=== PATIENT | female | born 1945 | race Caucasian/White ===

== ENCOUNTER → 2017-08-19 | Outpatient (CLI) | payer MEDICARE ==
[~2017-08-19] MED LIST: ASPIR 8181 MG PO; CALCIUM600 MG PO; CICLOPIROX15 GM TOP; LANSOPRAZOLE15 MG PO; POLYETHYLENE GL17 GM PO; SYNTHROID25 MCG PO
--- NOTE | 2017-08-19 11:58 | Diagnostic Imaging Report ---
Exam: Head CT without contrast History: Trauma Comparison studies: None Technique: Axial images were obtained from the skull base to the vertex. Coronal and sagittal images reconstructed from the axial data. Intravenous contrast: None Findings: Scalp: No abnormalities. Bones: No fractures, blastic or lytic lesions. Brain sulci: Appropriate for age. Ventricles: Normal in size and configuration. No hydrocephalus. Extra-axial spaces: No masses, no fluid collection. Parenchyma: No abnormal densities. No masses, acute hemorrhage, acute or chronic vascular insults. Sellar/suprasellar region: No abnormalities. Craniocervical junction: Patent foramen magnum. No Chiari one malformation. Incidental findings: Atherosclerotic calcifications in the carotid siphons and intradural vertebral arteries. Bilateral intraocular lens or placement. Small nonobstructing right maxillary sinus retention cyst and mild partial right ethmoid opacification. IMPRESSION: No acute abnormalities. Signed by: Dr. Jayy Benson M.D. on 08/19/2017 11:55 AM
--- NOTE | 2017-08-19 12:50 | Diagnostic Imaging Report ---
EXAM: CT Chest WITHOUT contrast INDICATION: \[id number] \S\[id number] \S\BLUNT TRAUMA TO CHEST COMPARISON: Chest CT dated 07/21/2014 TECHNIQUE: Chest was scanned utilizing a multidetector helical scanner from the lung apex through the level of the adrenal glands without administration of IV contrast. Absence of intravenous contrast decreases sensitivity for detection of lymphadenopathy and vascular pathology. Coronal and sagittal reformations were obtained. Routine protocol was performed. IV CONTRAST: None COMPLICATIONS: None RADIATION DOSE: Total DLP: 1383.21 mGy*cm Estimated effective dose: (DLP x 0.014 x size factor) mSv CTDIvol has been reviewed. It is below the limits set by the Radiation Protocol Committee (RPC). FINDINGS: LINES/ TUBES: None. LUNGS AND AIRWAYS: No focal consolidation. Scattered subsegmental atelectasis. Subpleural lung nodules measuring 5 mm in right lower lobe (series 3, images 50 and 56). 4 mm posterior left lower lobe subpleural nodule (3/69). 4 mm lingular subpleural nodule (3/69). Airways are normal. PLEURA: The pleural spaces are clear. HEART AND MEDIASTINUM: The thyroid gland is normal. No mediastinal, hilar or axillary lymphadenopathy. Bilateral axillary dissection clips. The heart is normal in size.. There is no pericardial effusion. Severe atherosclerotic calcification of coronary arteries. Evidence of CABG surgery. UPPER ABDOMEN: Unremarkable. BONES: The visualized bony thorax is within normal limits. SOFT TISSUES: Bilateral subareolar breast calcifications. IMPRESSION: No evidence of traumatic injury in chest. Bilateral subpleural lung nodules measuring up to 5 mm. Without risk factors, no follow-up is necessary. With risk factors, follow-up with low-dose chest CT in one year is recommended. Signed by: Dr. Shharam Garcia MD on 08/19/2017 12:47 PM
== END ==
LOC: CT 10:31
PROVIDERS: ATTEND Internal Medicine
DX: S29.8XXA Other specified injuries of thorax, initial encounter (principal)
CPT/HCPCS: 70450; 71250

== ENCOUNTER → 2018-03-06 | Outpatient (CLI) | payer MEDICARE ==
--- NOTE | 2018-03-06 16:37 | Diagnostic Imaging Report ---
Exam: Brain MRI without IV contrast History: Not intractable headache Comparison studies: Head CT 08/19/2017 Technique: Sagittal and axial T2 FS, axial DWI, axial T2*GRE, axial T1 FLAIR and axial coronal T2 FLAIR. Intravenous contrast: None Findings: Scalp: Normal in signal. No masses. Bone marrow: Normal in signal intensity. Brain sulci: Appropriate for age. Ventricles: Normal in size. No hydrocephalus. Extra axial spaces: No mass, no fluid collection. Parenchyma: No mass, hemorrhage or acute ischemia. Punctate T2 FLAIR hyperintense focus in the right parietal postcentral subcortical white matter is nonspecific but may reflect minimal chronic microvascular ischemic changes. Mild age-related T2 FLAIR hyperintense signal changes along the regions of the frontal horns of the lateral ventricles. Suprasellar region: No abnormalities. Craniocervical junction: Patent foramen magnum. No Chiari malformation. Vessels: Normal flow-voids in the arteries and sinuses. Incidental findings: Small right maxillary sinus retention cyst. IMPRESSION: 1. Minimal supratentorial chronic microvascular ischemic changes. 2. No other intracranial abnormalities. Signed by: Dr. Jayy Benson M.D. on 03/06/2018 4:34 PM
== END ==
LOC: MRI 14:45
PROVIDERS: ATTEND Internal Medicine
DX: R51 Headache (principal)
CPT/HCPCS: 70551

== ENCOUNTER → 2018-12-01 | Day surgery (SDC) | payer MEDICARE ==
--- NOTE | 2018-11-29 13:58 | Diagnostic Imaging Report ---
EXAMINATION: PA and lateral views of the chest. COMPARISON: None CLINICAL HISTORY: Preop for breast mass removal DISCUSSION: Lines/tubes: None. Lungs: The lungs are well inflated and clear. A round peripherally calcified 0.9 cm nodular density projecting in the left lower lung on the frontal view is likely located in the left breast. There is no evidence of pneumonia or pulmonary edema. Pleura: There is no pleural effusion or pneumothorax. Heart and mediastinum: Mild enlargement of the cardiac silhouette. Pulmonary vasculature is normal. CABG changes. Atherosclerotic calcification of the aortic arch. Bones and soft tissues: No acute bony abnormalities. Midline sternotomy wires. Degenerative changes in the thoracic spine. Metallic clips project in the left axillary region. IMPRESSION: No acute cardiopulmonary abnormalities. Peripherally calcified 0.9 mm nodular density projecting in the left lower lung on the frontal view is likely located in the left breast. Correlate with mammography. Signed by: Dr. Moses Guaman M.D. on 11/29/2018 1:55 PM
[~2018-12-01] MED LIST changes: +ATORVASTATIN CA10 MG PO; +DEXAMETHASONE SOD PHOS INJ 4 MG/ML VIAL ONE; +ETOMIDATE 2 MG/ML 10 ML INJ IV ONE; +FENTANYL CITRATE/PF 100MCG/2 ML INJ ONE; +FLUTICASONE; +LEVOFLOXACIN 500MG/D5W 100ML 100 ML IV ONE; +LIDOCAINE HCL 2% LOCAL INJ 5 ML SDV VIAL INJ ONE; +METOPROLOL SUCC25 MG PO; +MULTIVITAMINS1 EAC7 PO; +ONDANSETRON HCL INJ 2MG/ML 2ML 2 MG/ML VIAL ONE; +SEVOFLURANE INHAL SOLN 250 ML PEN BTL ONE; +[UNRECOGNIZED DRUG - OTHER] PO; +[UNRECOGNIZED DRUG - OTHER] TOP
--- OUTSIDE RECORDS SUMMARY | 2018-12-01 10:46 | XMS REPORT | Clinical Summary ---
Author Author [facility] Organization [facility] Address Unknown Phone Unavailable Care Team Providers Care Egg Tester Name Role Phone Halley Stauffer MD PCP Allergies Comments Active Allergy Reactions Severity Noted Date Can take Doxycycline, Avelox & Cipro Cephalosporins Shortness Of High 04/08/2016 Breath, Swelling Cephalexin Shortness Of High 04/08/2016 Breath, Swelling, Anxiety Unsure whether she reacted to Robinul or Vancomycin. States healthcare provider was very vague. Glycopyrrolate Anaphylaxis High 04/08/2016 Is not sure that she reacted to Vancomycin or Robinol Vancomycin Anaphylaxis High 04/08/2016 Azithromycin Shortness Of High 04/08/2016 Breath, Swelling, Anxiety Medications End Date Status Medication Sig Dispensed Refills Start Date Active fluticasone (FLONASE) 50 0 mcg/actuation nasal spray 6 Active metroNIDAZOLE daily. 0 (METROCREAM) 0.75 % cream 6 Active ASPIRIN (ASPIR-81 ORAL) Take by mouth 0 daily. Active lansoprazole (PREVACID) Take by mouth 0 15 MG capsule daily. Active B complex-vitamin C-folic Take 1 tablet 0 acid (FOLBEE PLUS) 5 mg by mouth tablet daily. Active calcium carbonate-vitamin Take 1 tablet 0 D3 500 mg-200 unit per by mouth 2 tablet (two) times a day with meals. Active red yeast rice 600 mg Take by mouth 0 capsule daily. Active carboxymethylcellulose 1 1 drop 3 0 % ophthalmic solution (three) times a day. Active Problems Problem Noted Date Status post three vessel coronary artery bypass 04/16/2016 Nonrheumatic aortic valve stenosis 04/15/2016 Respiratory insufficiency 04/15/2016 Post-op pain 04/15/2016 Hypothyroid 04/15/2016 Postoperative anemia due to acute blood loss 04/15/2016 CAD (coronary artery disease) 04/14/2016 Social History Date Tobacco Use Types Packs/Day Years Used Never Smoker Smokeless Tobacco: Never Used Tobacco Cessation: Counseling Given: No Alcohol Use Drinks/Week oz/Week Comments No Sex Assigned at Date Recorded Not on file Industry Job Start Date Occupation Not on file Not on file Not on file Travel End Travel History Travel Start No recent travel history available. Last Filed Vital Signs Not on file Plan of Treatment Health Maintenance Due Date Last Done Comments BREAST CANCER SCREENING 01/10/1994 COLONOSCOPY SCREENING 01/10/1994 SHINGLES VACCINES (#1) 01/10/1994 65+ PNEUMOCOCCAL VACCINE 01/10/2009 (1 of 2 - PCV13) INFLUENZA VACCINE 12/07/2018 Implants Device Identifier Shelf Expiration Date Model / Serial / Lot Implanted Type Area Manufactur er [id number] / / Patch Biosurg Selnt Fibrin Absrbl Surgical N/A: N/A ASENCIO 9.5x4.8cm Tachosil - [id number] Implants; BIOSCIENCE Implanted: 04/15/2016 (Quantity not Expanders; on file) Extenders; Surgical Wires 12/03/2020 [id number] / [id number] / [id number] Perph Vasclr Ptfe 1.2x10cm Vascular N/A: N/A BARD 1.65mm - [id number] - [id number] Graft PERIPHERAL Implanted: Qty: 1 on 04/15/2016 by VASCULAR Virgil Nicole MD Results Not on fileafter 11/30/2017 Insurance Type Payer Benefit Subscriber ID Effective Phone Address Plan / Dates Group Medicare MEDICARE MEDICARE xxxxxxxxxx 2009-P JAMESON, PART A AND resent [place] B Commercial AARP AAR xxxxxxxxxxx 2015-P SUPPLEMENT resent Advance Directives Patient has advance care planning documents on file. For more information, gabrielle acuna contact: Jameson Bueno [address] [place] [address]
--- OUTSIDE RECORDS SUMMARY | 2018-12-01 10:46 | XMS REPORT ---
Author Author [facility] Address Unknown Phone Unavailable Care Team Providers Care Construction Ironworker Name Role Phone KATHY BANDA Unavailable Unavailable GLADIS STAUFFER Unavailable Unavailable Payers Payer Name Policy Type Policy Number Effective Date Expiration Date Problems This patient has no known problems. Allergies, Adverse Reactions, Alerts Allergy Name Allergy Type Status Severity Reaction(s) Onset Date Inactive Date Treating Clinician Comments Penicillins DA Active U 2016-01-30 00:00:00 cephalexin DA Active U 2016-01-30 00:00:00 azithromycin DA Active U 2016-01-30 00:00:00 diphenhydramine DA Active U 2016-01-30 00:00:00 ANTIHISTAMINE DA Active U 2001-11-08 00:00:00 BANDAIDS DA Active U 2001-11-08 00:00:00 CIGARETTE SMOKE DA Active U 2001-11-08 00:00:00 PERFUME DA Active U 2001-11-08 00:00:00 PLASTIC TAPE DA Active U 2001-11-08 00:00:00 Medications This patient has no known medications. Results Test Description Test Time Test Comments Text Results Atomic Results Result Comments CHEST 2 VIEWS 2018-11-29 13:53:[address] [address] Patient Name: SHARI LOCKETT MR #: [id number] : 1945 Age/Sex: 73/F Req #: [id number] Adm Physician: Ordered by: KATHY BANDA MD Report #: [id number] Location: OR Room/Bed: Procedure: [id number] DX/CHEST 2 VIEWS Exam Date: 11/29/18 Exam Time: 1325 REPORT STATUS: Signed EXAMINATION: PA and lateral views of the chest. COMPAR IVAN: None CLINICAL HISTORY: Preop for breast mass removal DISCUSSION: Lines/tubes: None. Lungs: The lungs are well inflated and clear. A round peripherally calcified 0.9 cm nodular density projecting in the left lower lung on the frontal view is likely located in the left breast. There is no evidence of pneumonia or pulmonary edema. Pleura: There is no pleural effusion or pneumothorax. Heart and mediastinum: Mild enlargement of the cardiac silhouette. Pulmonary vasculature is normal. CABG changes. Atherosclerotic calcification of the aortic arch. Bones and soft tissues: No acute bony abnormalities. Midline sternotomy wires. Degenerative changes in the thoracic spine. Metallic clips project in the left axillary region. IMPRESSION: No acute cardiopulmonary abnormalities. Peripherally calcified 0.9 mm nodular density projecting in the left lower lung on the frontal view is likely located in the left breast. Correlate with ma mmography. Signed by: Dr. Gin Guaman M.D. on 11/29/2018 1:55 PM Dictated By: GIN GUAMAN MD [id number] Transcribed By: FALLON on 11/29/18 1354 COPY TO: KATHY BANDA MD DIAG MAMM BILATERAL CHIQUI CAD DIGITAL 2018-03-29 16:08:51 - DIAG MAMM BILATERAL CHIQUI CAD DIGITALBILATERAL DIGITAL DIAGNOSTIC MAMMOGRAM 3D/2D WITH CAD: 03/29/2018CLINICAL: Bilateral breast pain. Digital breast tomosynthesis was performed in addition to routine CC and MLO views. Current mammographic images were evaluated by either a [place] M-Vu or a [employer] ImageChecker CAD (computer aided detection system). Comparison is made to exams dated 07/14/2017 mammogram, 06/29/2016 mammogram, and 05/08/2015 mammogram - [facility]-. There are scattered fibroglandular tissues in both breasts. Patient is status post bilateral breast lumpectomies.Lumpectomy scar and benign dystrophic calcifications are present at the site of left palpable marker.No suspicious mass, architectural distortion, malignant type calcification, or lymph node abnormality detected. Breast architecture is stable compared to prior exams.IMPRESSION: BENIGNThere is no mammographic evidence of malignancy. Resume annual screening mammography in one year. Clinical follow up is also recommended, and further management of clinical findings should be based on clinical examination. Soto Urena M.D. qn/:03/29/2018 16:08:51 copy to: Gladis Stauffer M.D., ph: [phone], fax: [phone] Technologist: Carola ROA, [facility]-letter sent: BIRADS 1-2 Normal Mammogram BI-RADS: 2 Benign MRI BRAIN WO 2018-03-06 16:30:00 [place] [address] Patient Name: SHARI LOCKETT MR #: [id number] : 1945 Age/Sex: 73/F Req #: [id number] Adm Physician: Ordered by: GLADIS STAUFFER MD Report #: [id number] Location: MRI Room/Bed: Procedure: [id number] MRI/MRI BRAIN WO Exam Date: Exam Time: REPORT STATUS: Signed Exam: Brain MRI without IV contrast History: Not intractable headache Comparison studies: Head CT 08/19/2017 Technique: Sagittal and axial T2 FS, axial DWI, axial T2*GRE, axial T1 FLAIR and axial coronal T2 FLAIR. Intravenous contrast: None Findings: Scalp: Normal in signal. No masses. Bone marrow: Normal in signal intensity. Brain sulci: Appropriate for age. Ventricles: Normal in size. No hydrocephalus. Extra axial spaces: No mass, no fluid collection. Parenchyma: No mass, hemorrhage or acute ischemia. Punctate T2 FLAIR hyperintense focus in the right parietal postcentral subcortical white matter is nonspecific but may reflect minimal chronic microvascular ischemic changes. Mild age-related T2 FLAIR hyperintense signal changes along the regions of the frontal horns of the lateral ventricles. Suprasellar region: No abnormalities. Craniocervical junction: Patent foramen magnum. No Chiari malformation. Vessels: Normal flow-voids in the arteries and sinuses. Incidental findings: Small right maxillary sinus retention cyst. IMPRESSION: 1. Minimal supratentorial chronic microvascular ischemic changes. 2. No other intracranial abnormalities. Signed by: Dr. Kathy Benson M.D. on 03/06/2018 4:34 PM Dictated By: KATHY BENSON MD [id number] Transcribed By: FALLON on 03/06/18 163 COPY TO: GLADIS KIRK MD CT BRAIN [place] [address] Patient Name: SHARI LOCKETT MR #: [id number] : 1945 Age/Sex: 72/F Req #: [id number] Adm Physician: Ordered by: GLADIS STAUFFER MD Report #: [id number] Location: CT Room/Bed: Procedure: [id number] CT/CT BRAIN WO Exam Date: 08/19/17 Exam Time: 1054 REPORT STATUS: Signed Exam: Head CT without contrast History: Trauma Comparison studies: None Technique: Axial images were obtained from the skull base to the vertex. Coronal and sagittal images reconstructed from the axial data. Intravenous contrast: None Findings: Scalp: No abnormalities. Bones: No fractures, blastic or lytic lesions. Brain sulci: Appropriate for age. Ventricles: Normal in size and configuration. No hydrocephalus. Extra-axial spaces: No masses, no fluid collection. Parenchyma: No abnormal densities. No masses, acute hemorrhage, acute or chronic vascular insults. Sellar/suprasellar region: No abnormalities. Craniocervical junction: Patent foramen magnum. No Chiari one malformation. Incidental findings: Atherosclerotic calcifications in the carotid siphons and intradural vertebral arteries. Bilateral intraocular lens or placement. Small nonobstructing right maxillary sinus retention cyst and mild partial right ethmoid opacification. IMPRESSION: No acute abnormalities. Signed by: Dr. Kathy Benson M.D. on 08/19/2017 11:55 AM Dictated By: KATHY BENSON MD 1155 Transcribed By: FALLON on 08/19/17 1155 COPY TO: GLADIS STAUFFER MD CT CHEST WO [place] [address] Patient Name: SHARI LOCKETT MR #: [id number] : 1945 Age/Sex: 72/F Req #: [id number] Adm Physician: Ordered by: GLADIS STAUFFER MD Report #: [id number] Location: CT Room/Bed: Procedure: [id number] CT/CT CHEST WO Exam Date: 08/19/17 Exam Time: 1054 REPORT STATUS: Signed EXAM: CT Chest WITHOUT contrast INDICATION: COMPARISON: Chest CT dated 07/21/2014 TECHNIQUE: Chest was scanned utilizing a multidetector helical scanner from the lung apex through the level of the adrenal glands without administration of IV contrast. Absence of intravenous contrast decreases sensitivity for detection of lymphadenopathy and vascular pathology. Coronal and sagittal reformations were obtained. Routine protocol was performed. IV CONTRAST: None COMPLICATIONS: None RADIATION DOSE: Total DLP: 1383.21 mGy*cm Estimated effective dose: (DLP x 0.014 x size factor) mSv CTDIvol has been reviewed. It is below the limits set by the Radiation Protocol Committee (RPC). FINDINGS: LINES/ TUBES: None. LUNGS AND AIRWAYS: No focal consolida tion. Scattered subsegmental atelectasis. Subpleural lung nodules measuring 5 mm in right lower lobe (series 3, images 50 and 56). 4 mm posterior left lower lobe subpleural nodule (3/69). 4 mm lingular subpleural nodule (3/69). Airways are normal. PLEURA: The pleural spaces are clear. HEART AND MEDIASTINUM: The thyroid gland is normal. No mediastinal, hilar or axillary lymphadenopathy. Bilateral axillary dissection clips. The heart is normal in size.. There is no pericardial effusion. Severe atherosclerotic calcification of coronary arteries. Evidence of CABG surgery. UPPER ABDOMEN: Unremarkable. BONES: The visualized bony thorax is within normal limits. SOFT TISSUES: Bilateral subareolar breast calcifications. IMPRESSION: No evidence of traumatic injury in chest. Bilateral subpleural lung nodules measuring up to 5 mm. Without risk factors, no follow-up is necessary. With risk factors, follow-up with low-dose chest CT in one year is recommended. Signed by: Dr. Shahram Nunez MD on 08/19/2017 12:47 PM Dictated By: SHAHRAM NUNEZ MD [id number] Transcribed By: FALLON on 08/19/17 1247 COPY TO: GLADIS STAUFFER MD
[2018-12-01 11:48] LABS: BASOPHILS # (AUTO) 0.1 (0.0-0.1); BASOPHILS % 1.1 % (0.0-1.0); EOSINOPHILS # (AUTO) 0.2 (0.0-0.4); EOSINOPHILS % 3.1 % (0.0-6.0); HEMATOCRIT 42.8 % (34.2-44.1); HEMOGLOBIN 14.4 g/dL (12.0-16.0); LYMPHOCYTES # (AUTO) 2.7 (1.0-3.2); LYMPHOCYTES % 38.1 % (18.0-39.1); MEAN CORPUSCULAR HEMOGLOBIN 31.2 pg (28-32); MEAN CORPUSCULAR HGB CONC 33.6 g/dL (31-35); MEAN CORPUSCULAR VOLUME 92.6 fL (81-99); MONOCYTES # (AUTO) 0.8 (0.2-0.8); MONOCYTES % 11.2 % (4.4-11.3); NEUTROPHILS # (AUTO) 3.3 (2.1-6.9); NEUTROPHILS % 46.4 % (38.7-80.0); PLATELET COUNT 227 x10e3/uL (140-360); RED BLOOD COUNT 4.62 x10e6/uL (3.6-5.1); RED CELL DISTRIBUTION WIDTH 12.6 % (11.7-14.4)
[2018-12-01 12:09] LABS: ANION GAP 17.3 mmol/L (8-16); BLOOD UREA NITROGEN 19 mg/dL (7-26); BUN/CREATININE RATIO 23 (6-25); CALCIUM 10.4 mg/dL (8.4-10.2); CARBON DIOXIDE 22 mmol/L (22-29); CHLORIDE 105 mmol/L (98-107); CREATININE, SERUM 0.83 mg/dL (0.57-1.11); EST GLOMERULAR FILTRATION RATE > 60 ML/MIN (60-); GLUCOSE 122 mg/dL (74-118); POTASSIUM 4.3 mmol/L (3.5-5.1); SODIUM 140 mmol/L (136-145)
[2018-12-01 14:00] VITALS: BP 151/64
--- NOTE | 2018-12-01 16:10 | Operative Report ---
DATE OF PROCEDURE: 12/01/2018 SURGEON: Jayy Tucker MD PREOPERATIVE DIAGNOSES: 1. Left breast mass. 2. History of carcinoma of the left breast. POSTOPERATIVE DIAGNOSES: 1. Left breast mass. 2. History of carcinoma of the left breast. PROCEDURE: Excision of left breast mass. DATA ANALYTICS DEVELOPER: None. ANESTHESIA: General. INDICATIONS AND FINDINGS: The patient is a 73-year-old female with history of carcinoma of the left breast. She has a mass in the left breast, appeared to be fat necrosis grossly, did not appear to be tumor. There was also some cystic degeneration around the area of the mass. TECHNIQUE: After adequate general anesthesia with the patient in supine position, the left breast was prepped and draped in a sterile fashion with ChloraPrep solution. Skin and subcutaneous tissue were infiltrated with 0.5% Marcaine. A circumareolar incision was made over the area of the mass, which was at 1 o'clock just beyond the circumareolar area, it was carried down to the subcutaneous tissue then the mass was completely excised. There was some hard breast tissue, which appeared to be fat necrosis, which was also excised from the area. Hemostasis was achieved with electrocautery. The wound was infiltrated further with 0.5% Marcaine, inspected for hemostasis which was seen to be adequate. The wound was then closed with 3-0 Vicryl subcutaneous tissue and 4-0 Vicryl subcuticular to the skin. Dermabond and sterile dressings were applied. The patient tolerated the procedure well. Estimated blood loss was 5 mL. There were no complications. All counts were correct and the patient was taken to the recovery room in satisfactory condition. MD RENÉ HainesG/MODL /[id number] cc: Glenn Beaver MD
== END | disposition home or self-care (01) ==
LOC: OR 10:23
PROVIDERS: ATTEND Surgery
DX: N64.1 Fat necrosis of breast (principal); N60.32 Fibrosclerosis of left breast; Z01.810 Encounter for preprocedural cardiovascular examination; Z01.812 Encounter for preprocedural laboratory examination; Z85.3 Personal history of malignant neoplasm of breast; Z88.0 Allergy status to penicillin; Z88.8 Allergy status to other drugs, medicaments and biological substances; Z91.048 Other nonmedicinal substance allergy status; E03.9 Hypothyroidism, unspecified; K21.9 Gastro-esophageal reflux disease without esophagitis; I35.0 Nonrheumatic aortic (valve) stenosis
CPT/HCPCS: 19120; 36415; 71046; 80048; 85025; 88305; 88311; 88342; J1100; J1956; J2001; J2405; J3010